=== PATIENT | male | born 1950 | race Caucasian/White ===

== ENCOUNTER 2019-09-22 14:35 | Observation (INO) | payer OTHER ==
[2019-09-22] MEDS ORDERED: NITROGLYCERIN 1 GM PKT TD ONE (15:23)
[2019-09-22] MEDS ORDERED: ACETAMINOPHEN 500 MG TAB ONE (15:23)
[2019-09-22] MEDS ORDERED: PROMETHAZINE INJ 25 MG/ML AMP ONE (15:23)
[2019-09-22 15:31] LABS: Absolute Lymphocytes (CBC) 1.8 K/uL (0.7-4.9); Basophils % 1.1 % (0-1.3); Hematocrit 46.5 % (39.6-49.0); Lymphocytes % 18.8 % (15.3-44.8); RBC Red Blood Cell Count 5.04 M/uL (4.33-5.43)
[2019-09-22 15:32] LABS: Protime INR 0.96
[2019-09-22 15:49] LABS: ALT/SGPT 47 U/L (12-78); AST/SGOT 30 U/L (15-37); Albumin 4.2 g/dL (3.4-5.0); Alkaline Phosphatase 86 U/L (45-117); BUN Blood Urea Nitrogen 13 mg/dL (7-18); Bicarbonate 27 mmol/L (21-32); Bilirubin Direct 0.2 mg/dL (0-0.2); Bilirubin Total 0.6 mg/dL (0.2-1.0); Glucose Level 89 mg/dL (74-106); Magnesium 2.2 mg/dL (1.8-2.4); NT PRO-BNP 115 pg/mL (<125); Protein, Total 7.3 g/dL (6.4-8.2); Sodium Level 140 mmol/L (136-145); Troponin (Emerg Dept Use Only) < 0.02 ng/mL (0.0-0.045)
--- NOTE | 2019-09-22 18:13 | RAD REPORT ---
EXAM DESCRIPTION: CT - Angio Aorta For Dissection - 09/22/2019 5:55 pm CLINICAL HISTORY: . Chest and abd pain COMPARISON: None TECHNIQUE: Computed tomography angiography of the chest, abdomen pelvis were obtained. 100 cc Isovue 370 was administered intravenously. Coronal and sagittal reconstruction were performed. MIP 3D reconstruction was performed All CT scans are performed using dose optimization technique as appropriate and may include automated exposure control or mA/KV adjustment according to patient size. FINDINGS: An aortic dissection is not seen. An aortic aneurysm is not displayed. The celiac, SMA and FATOU are patent . A lung consolidation is not present. A pericardial effusion is not seen. A pleural effusion is not n oted. The liver,spleen, pancreas adrenals kidneys demonstrate no significant abnormality. The appendix is normal. There no evidence diverticulitis. No ascites is noted. A small right inguinal hernia contains fat [id number] atherosclerotic disease IMPRESSION: Negative for an aortic dissection.
--- NOTE | 2019-09-22 18:42 | EDPHYS ---
Physician Documentation [facility] Name: Dominic Stewart Age: 69 yrs Sex: Male : 1950 Arrival Date: 09/22/2019 Time: 14:36 Bed 20 Private MD: ED Physician Myron Adams HPI: 09/22 17:08 This 69 yrs old Male presents to ER via Wheelchair with complaints of Chest kdr Pain, Neck Pain, <24hrs Old. 17:08 The patient or guardian reports chest pain that is located primarily in the substernal kdr area. Onset: gradually, This discomfort has been ongoing for months if not years . It has become more persistent in the last three weeks. He has a history of CAD and a history of normal findings (lab \T\EKG). . The pain radiates to back. Associated signs and symptoms: The patient has no apparent associated signs or symptoms. The chest pain is described as aching, a pressure, sharp, squeezing. Duration: The patient or guardian reports multiple episodes, that are intermittent, that wax and wane, with no pattern. Modifying factors: The symptoms are alleviated by nothing. the symptoms are aggravated by nothing. Severity of pain: At its worst the pain was severe incapacitating in the emergency department the pain has improved mildly, The patient does not appear in any acute distress or significant pain. The patient has experienced similar episodes in the past, chronically. The patient has not recently seen a physician. Historical: - Allergies: 14:50 No Known Allergies; tw2 - Home Meds: 14:50 carvedilol 25 mg oral tab 1 tab 2 times per day [Active]; lisinopril 5 mg Oral tab 1 tw2 tab once daily [Active]; atorvastatin 20 mg oral tab 1 tab once daily [Active]; - PMHx: 14:50 Hypertension; Hyperlipidemia; tw2 - PSHx: 14:50 triple bypass; tw2 - Immunization history:: Adult Immunizations. - Coronavirus screen:: The patient has NOT traveled to [place] in the past 14 days. - Social history:: Smoking status: . - Ebola Screening: : Patient denies travel to an Ebola-affected area in the 21 days before illness onset. ROS: 17:08 Constitutional: Negative for fever, chills, and weight loss, Eyes: Negative for injury, kdr pain, redness, and discharge, ENT: Negative for injury, pain, and discharge, Neck: Negative for injury, pain, and swelling, Respiratory: Negative for shortness of breath, cough, wheezing, and pleuritic chest pain, Abdomen/GI: Negative for abdominal pain, nausea, vomiting, diarrhea, and constipation, Back: Negative for injury and pain, : Negative for injury, bleeding, discharge, and swelling, MS/Extremity: Negative for injury and deformity, Skin: Negative for injury, rash, and discoloration, Neuro: Negative for headache, weakness, numbness, tingling, and seizure activity. Psych: Negative for depression, anxiety, suicide ideation, homicidal ideation, and hallucinations, Allergy/Immunology: Negative for hives, rash, and allergies, Endocrine: Negative for neck swelling, polydipsia, polyuria, polyphagia, and marked weight changes, Hematologic/Lymphatic: Negative for swollen nodes, abnormal bleeding, and unusual bruising. 17:08 Cardiovascular: Positive for chest pain, of the anterior aspect of left upper chest and mid-sternal area, Negative for edema, orthopnea, palpitations, paroxysmal nocturnal dyspnea, acute changes. Exam: 17:08 Constitutional: This is a well developed, well nourished patient who is awake, alert, kdr and in no acute distress. Head/Face: Normocephalic, atraumatic. Eyes: Pupils equal round and reactive to light, extra-ocular motions intact. Lids and lashes normal. Conjunctiva and sclera are non-icteric and not injected. Cornea within normal limits. Periorbital areas with no swelling, redness, or edema. Neck: Trachea midline, no thyromegaly or masses palpated, and no cervical lymphadenopathy. Supple, full range of motion without nuchal rigidity, or vertebral point tenderness. No Meningismus. Chest/axilla: Normal chest wall appearance and motion. Nontender with no deformity. No lesions are appreciated. Cardiovascular: Regular rate and rhythm with a normal S1 and S2. No gallops, murmurs, or rubs. Normal PMI, no JVD. No pulse deficits. Respiratory: Lungs have equal breath sounds bilaterally, clear to auscultation and percussion. No rales, rhonchi or wheezes noted. No increased work of breathing, no retractions or nasal flaring. Abdomen/GI: Soft, non-tender, with normal bowel sounds. No distension or tympany. No guarding or rebound. No evidence of tenderness throughout. Back: No spinal tenderness. No costovertebral tenderness. Full range of motion. Skin: Warm, dry with normal turgor. Normal color with no rashes, no lesions, and no evidence of cellulitis. MS/ Extremity: Pulses equal, no cyanosis. Neurovascular intact. Full, normal range of motion. Neuro: Awake and alert, GCS 15, oriented to person, place, time, and situation. Cranial nerves II-XII grossly intact. Motor strength 5/5 in all extremities. Sensory grossly intact. Cerebellar exam normal. Normal gait. Psych: Awake, alert, with orientation to person, place and time. Behavior, mood, and affect are within normal limits. Vital Signs: 14:47 BP 202 / 105; Pulse 72; Resp 17; Temp 97.8(TE); Pulse Ox 100% on R/A; Weight 79.38 kg tw2 (R); Height 5 ft. 7 in. (170.18 cm); Pain 5/10; 15:05 BP 181 / 107; Pulse 70; Resp 18; Pulse Ox 98% on R/A; Pain 5/10; ls4 15:54 BP 146 / 88; Pulse 84; Resp 16; Temp 97.8; Pulse Ox 97% on R/A; Pain 1/10; ls4 16:50 BP 132 / 79; Pulse 60; Resp 15; Temp 97.8(O); Pulse Ox 100% on R/A; mh5 17:36 BP 123 / 81; Pulse 63; Resp 12; Temp 98.0(O); Pulse Ox 100% on R/A; mh5 18:42 BP 114 / 85; Pulse 63; Resp 19; Temp 98.0(O); Pulse Ox 98% on R/A; mh5 20:13 BP 131 / 89; Pulse 73; Resp 16; Temp 98.1(O); Pulse Ox 99% on R/A; Pain 1/10; ls4 14:47 Body Mass Index 27.41 (79.38 kg, 170.18 cm) tw2 MDM: 17:08 HEART Score: History: Slightly Suspicious (0), ECG: Normal (0), Age: > or = 65 years kdr (2), Risk Factors: 1 or 2 risk factors (1), Troponin: Total Score = 3. Data reviewed: vital signs, nurses notes, lab test result(s), EKG, radiologic studies. 18:41 Patient medically screened. [facility] 09/22 14:45 Order name: Basic Metabolic Panel [facility] 09/22 14:45 Order name: CBC with Diff [facility] 09/22 14:45 Order name: LFT's [facility] 09/22 14:45 Order name: Magnesium [facility] 09/22 14:45 Order name: NT PRO-BNP [facility] 09/22 14:45 Order name: PT-INR [facility] 09/22 14:45 Order name: Troponin (emerg Dept Use Only) [facility] 09/22 15:53 Order name: CBC with Automated Diff; Complete Time: 16:24 EDMI 09/22 15:54 Order name: Protime (+INR); Complete Time: 16:24 EDMI 09/22 15:56 Order name: Basic Metabolic Panel; Complete Time: 16:24 EDMI 09/22 15:56 Order name: Liver (Hepatic) Function; Complete Time: 16:24 EDMI 09/22 15:56 Order name: Troponin (Emerg Dept Use Only); Complete Time: 16:24 EDMS 09/22 15:56 Order name: NT PRO-BNP; Complete Time: 16:24 EDMI 09/22 15:56 Order name: Magnesium; Complete Time: 16:24 EDMI 09/22 14:45 Order name: XRAY Chest (1 view) [facility] 09/22 14:45 Order name: EKG; Complete Time: 18:04 [facility] 09/22 14:45 Order name: Cardiac monitoring; Complete Time: 14:59 [facility] 09/22 14:45 Order name: EKG - Nurse/Tech; Complete Time: 14:59 [facility] 09/22 14:45 Order name: IV Saline Lock; Complete Time: 15:00 [facility] 09/22 14:45 Order name: Labs collected and sent; Complete Time: 15:00 [facility] 09/22 14:45 Order name: O2 Per Protocol; Complete Time: 15:00 [facility] 09/22 14:45 Order name: O2 Sat Monitoring; Complete Time: 15:00 [facility] 09/22 16:23 Order name: CT Aorta for Dissection [facility] 09/22 18:30 Order name: CT; Complete Time: 18:35 EDMI 09/22 18:51 Order name: Chest Single View EDMS Administered Medications: 15:26 Drug: Nitroglycerin Ointment 2 % 1 inches Route: Transdermal; Site: anterior chest wall;ls4 16:09 Follow up: Response: No adverse reaction; Marked relief of symptoms; Pain is decreased; ls4 Blood pressure is lowered 15:26 Drug: Tylenol 1000 mg Route: PO; ls4 16:09 Follow up: Response: No adverse reaction; Pain is decreased ls4 15:27 Not Given (Patient Refused): Phenergan 12.5 mg IVP once ls4 19:49 Not Given (Patient Refused): Nitroglycerin 0.4 mg Sublingual once; every five minute if ls4 needed x3 Disposition: 09/22/19 18:41 Hospitalization ordered by Luz Armstrong for Observation. Preliminary diagnosis is Chest pain, unspecified. - Bed requested for Telemetry/MedSurg (observation). - Status is Observation. ls4 - Condition is Fair. - Problem is an acute exacerbation. - Symptoms have improved. Signatures: Dispatcher [employer] EDMS Myron Adams MD MD [facility] Julia Layne RN RN tl1 Kelly Ortiz RN RN tw2 Elo Bhat, AIDE RN ls4 Corrections: (The following items were deleted from the chart) 19:19 18:41 Hospitalization Ordered by Luz Armstrong MD for Observation. Preliminary tl1 diagnosis is Chest pain, unspecified. Bed requested for Telemetry/MedSurg (observation). Status is Observation. Condition is Fair. Problem is an acute exacerbation. Symptoms have improved. kdr 20:55 19:19 09/22/2019 18:41 Hospitalization Ordered by Luz Armstrong MD for Observation. ls4 Preliminary diagnosis is Chest pain, unspecified. Bed requested for Telemetry/MedSurg (observation). Status is Observation. Condition is Fair. Problem is an acute exacerbation. Symptoms have improved. tl1
--- NOTE | 2019-09-22 18:42 | ER ---
Nurse's Notes [facility] Name: Dominic Stewart Age: 69 yrs Sex: Male : 1950 Arrival Date: 09/22/2019 Time: 14:36 Bed 20 Private MD: Diagnosis: Chest pain, unspecified Presentation: 09/22 14:46 Presenting complaint: Patient states: i have been having chest pain that started about tw2 3 weeks ago, they come and go, sometimes it feels like a tightness and radiates to my back, i have had a triple bypass 10 years ago, but i do feel this tightness and pressure like on both sides of my neck. Transition of care: patient was not received from another setting of care. Onset of symptoms was September 22, 2019. Risk Assessment: Do you want to hurt yourself or someone else? Patient reports no desire to harm self or others. Initial Sepsis Screen: Does the patient meet any 2 criteria? No. Patient's initial sepsis screen is negative. Does the patient have a suspected source of infection? No. Patient's initial sepsis screen is negative. Care prior to arrival: None. 14:46 Method Of Arrival: Wheelchair tw2 14:46 Acuity: LOIS 2 tw2 14:48 Note provider notified of pts triage and hx. tw2 Triage Assessment: 14:46 General: Appears in no apparent distress. well groomed, Behavior is calm, cooperative, tw2 appropriate for age. Pain: Complains of pain in chest. Cardiovascular: Reports chest pain, and pressure on both sides of my neck. Historical: - Allergies: 14:50 No Known Allergies; tw2 - Home Meds: 14:50 carvedilol 25 mg oral tab 1 tab 2 times per day [Active]; lisinopril 5 mg Oral tab 1 tw2 tab once daily [Active]; atorvastatin 20 mg oral tab 1 tab once daily [Active]; - PMHx: 14:50 Hypertension; Hyperlipidemia; tw2 - PSHx: 14:50 triple bypass; tw2 - Immunization history:: Adult Immunizations. - Coronavirus screen:: The patient has NOT traveled to [place] in the past 14 days. - Social history:: Smoking status: . - Ebola Screening: : Patient denies travel to an Ebola-affected area in the 21 days before illness onset. Screenin:06 Abuse screen: Denies threats or abuse. Denies injuries from another. Nutritional ls4 screening: No deficits noted. Tuberculosis screening: No symptoms or risk factors identified. Fall Risk None identified. Assessment: 15:27 Pain: Pain radiates to neck Pain began gradually. Neuro: No deficits noted. ls4 Cardiovascular: Reports chest pain, since 3 weeks. Respiratory: No deficits noted. GI: No deficits noted. Derm: No deficits noted. 16:30 Reassessment: Patient appears in no apparent distress at this time. Patient and/or ls4 family updated on plan of care and expected duration. Pain level reassessed. Patient is alert, oriented x 3, equal unlabored respirations, skin warm/dry/pink. Patient states symptoms have improved. 17:30 Reassessment: Patient appears in no apparent distress at this time. Patient and/or ls4 family updated on plan of care and expected duration. Pain level reassessed. Patient is alert, oriented x 3, equal unlabored respirations, skin warm/dry/pink. 18:30 Reassessment: Patient appears in no apparent distress at this time. Patient and/or ls4 family updated on plan of care and expected duration. Pain level reassessed. Patient is alert, oriented x 3, equal unlabored respirations, skin warm/dry/pink. 19:30 Reassessment: Patient appears in no apparent distress at this time. Patient and/or ls4 family updated on plan of care and expected duration. Pain level reassessed. Patient is alert, oriented x 3, equal unlabored respirations, skin warm/dry/pink. 20:02 Reassessment: REPORT TO JAZMIN CHEATHAM ls4 Vital Signs: 14:47 BP 202 / 105; Pulse 72; Resp 17; Temp 97.8(TE); Pulse Ox 100% on R/A; Weight 79.38 kg tw2 (R); Height 5 ft. 7 in. (170.18 cm); Pain 5/10; 15:05 BP 181 / 107; Pulse 70; Resp 18; Pulse Ox 98% on R/A; Pain 5/10; ls4 15:54 BP 146 / 88; Pulse 84; Resp 16; Temp 97.8; Pulse Ox 97% on R/A; Pain 1/10; ls4 16:50 BP 132 / 79; Pulse 60; Resp 15; Temp 97.8(O); Pulse Ox 100% on R/A; mh5 17:36 BP 123 / 81; Pulse 63; Resp 12; Temp 98.0(O); Pulse Ox 100% on R/A; mh5 18:42 BP 114 / 85; Pulse 63; Resp 19; Temp 98.0(O); Pulse Ox 98% on R/A; mh5 20:13 BP 131 / 89; Pulse 73; Resp 16; Temp 98.1(O); Pulse Ox 99% on R/A; Pain 1/10; ls4 14:47 Body Mass Index 27.41 (79.38 kg, 170.18 cm) tw2 ED Course: 14:36 Patient arrived in ED. as 14:44 EKG completed in triage. Results shown to MD. tw2 14:45 Myron Adams MD is Attending Physician. kdr 14:46 Arm band placed on. tw2 14:47 Triage completed. tw2 14:53 Elo Bhat RN is Primary Nurse. ls4 15:06 Patient has correct armband on for positive identification. Bed in low position. Call ls4 light in reach. Side rails up X 1. stereotyper helper on. Pulse ox on. NIBP on. Warm blanket given. Verbal reassurance given. Diet: Patient is NPO. 15:06 No provider procedures requiring assistance completed. Patient maintains SpO2 ls4 saturation greater than 95% on room air. 18:41 Luz Armstrong MD is Hospitalizing Provider. kdr 20:51 Patient admitted, IV remains in place. intact. ls4 Administered Medications: 15:26 Drug: Nitroglycerin Ointment 2 % 1 inches Route: Transdermal; Site: anterior chest wall;ls4 16:09 Follow up: Response: No adverse reaction; Marked relief of symptoms; Pain is decreased; ls4 Blood pressure is lowered 15:26 Drug: Tylenol 1000 mg Route: PO; ls4 16:09 Follow up: Response: No adverse reaction; Pain is decreased ls4 15:27 Not Given (Patient Refused): Phenergan 12.5 mg IVP once ls4 19:49 Not Given (Patient Refused): Nitroglycerin 0.4 mg Sublingual once; every five minute if ls4 needed x3 Outcome: 18:41 Decision to Hospitalize by Provider. kdr 20:51 Admitted to Tele accompanied by tech, via wheelchair, room 215, Report called to JAZMIN ls4 20:51 Condition: stable 20:51 Instructed on the need for admit. 20:55 Patient left the ED. ls4 Signatures: Myron Adams MD MD kdr Martinez, Amelia as Wise, Tara, RN RN tw2 [facility] Elo Bhat RN RN ls4 Corrections: (The following items were deleted from the chart) 14:53 14:47 Pulse 72bpm; Resp 17bpm; Pulse Ox 100% RA; Temp 97.8F Temporal; 79.38 kg tw2 Reported; Height 5 ft. 7 in.; BMI: 27.4; Pain 5/10; tw2
--- NOTE | 2019-09-22 18:47 | RAD REPORT ---
EXAM DESCRIPTION: Bel Single View09/22/2019 6:40 pm CLINICAL HISTORY: Chest pain COMPARISON: None FINDINGS: The lungs appear clear of acute infiltrate. The heart is mildly enlarged. Postsurgical changes involve the chest. IMPRESSION: No acute abnormalities displayed
[2019-09-22] MEDS ORDERED: ACETAMINOPHEN 500 MG TAB PO PRN (20:40)
[2019-09-22] MEDS ORDERED: NITROGLYCERIN 0.4 MG/TAB SL PRN (20:40)
[2019-09-22 21:44] LABS: HDL Cholesterol 58 mg/dL (40-60); LDL Cholesterol, Calculated 108 (<130); Troponin I < 0.02 ng/mL (0.0-0.045)
[2019-09-22 22:04] VITALS: BMI 27.3
[2019-09-22] MEDS: ATORVASTATIN 20 MG TAB PO SCH (22:32)
[2019-09-22] MEDS: METOPROLOL TAR 50 MG TAB PO SCH (22:32)
[2019-09-23] MEDS: TEMAZEPAM 15 MG CAP PO PRN ×2 (01:23→21:46)
[2019-09-23 05:39] LABS: Absolute Lymphocytes (CBC) 2.1 K/uL (0.7-4.9); Basophils % 0.9 % (0-1.3); Hematocrit 42.6 % (39.6-49.0); Lymphocytes % 23.7 % (15.3-44.8); MPV 9.9 fL (7.6-11.3); RBC Red Blood Cell Count 4.63 M/uL (4.33-5.43)
[2019-09-23 05:58] LABS: Potassium 4.1 mmol/L (3.5-5.1)
[2019-09-23] MEDS ORDERED: REGADENOSON 0.4 MG/5 ML SYR IV ONE (08:37)
--- NOTE | 2019-09-23 08:47 | P.HP ---
Certification for Inpatient Patient admitted to: Observation With expected LOS: <2 Midnights Patient will require the following post-hospital care: None Practitioner: I am a practitioner with admitting privileges, knowledge of patient current condition, hospital course, and medical plan of care. Services: Services provided to patient in accordance with Admission requirements found in Title 42 Section 412.3 of the Code of Federal Regulations Patient History Date of Service: 09/22/19 Reason for admission: CHEST PAIN IN A PATIENT WITH A HISTORY OF CORONARY ARTERY DISEASE S/P CABG History of Present Illness: PATIENT IS A 69-YEAR-OLD GENTLEMAN WHO CAME TO THE HOSPITAL WITH CHEST DISCOMFORT. PATIENT HAS BEEN HAVING SOME CHEST PAIN ON AND OFF FOR THE LAST 3 WEEKS IT GOT SIGNIFICANTLY WORSE SO HE CAME INTO THE EMERGENCY ROOM. HE WAS WORKING IN [employer] WHEN THE CHEST PAIN STARTED AND HE DROVE BACK HOME TO COME TO THE EMERGENCY ROOM HERE. HE HAS HAD HISTORY OF CORONARY ARTERY BYPASS GRAFTING AND HAD A CARDIAC CATHETERIZATION A FEW YEARS AGO. IT IS SUGGESTED THAT HE MAY HAVE A 30% LESION AND THE BYPASSED ARTERY. HE ALSO HAS A HISTORY OF CAROTID ARTERY ATHEROSCLEROTIC DISEASE. AT THIS TIME PATIENT WILL BE ADMITTED FOR FURTHER EVALUATION. IT APPEARS HE MAY HAVE UNSTABLE ANGINA. HE MAY NEED FURTHER EVALUATION WITH AN ANGIOGRAM. STRESS TEST HAS BEEN ORDERED FOR THE MORNING AND WILL AWAIT THE RESULTS OF THIS AT THIS TIME. Allergies No Known Allergies Allergy (Unverified 09/22/19 17:23) Home Medications: Atorvastatin Calcium [Lipitor*] 1 tab PO BEDTIME 09/22/19 carvediloL [Carvedilol] 1 tab PO BID 09/22/19 lisinopriL [Lisinopril] 1 tab PO BEDTIME 09/22/19 Atorvastatin Calcium [Lipitor] 80 mg PO BEDTIME 60 Days #60 tab 09/24/19 Isosorbide Mononitrate [Isosorbide Mononitrate ER] 30 mg PO DAILY 60 Days #60 tab.er.24h 09/24/19 - Past Medical/Surgical History Has patient received pneumonia vaccine in the past: Yes Diabetic: No -: HTN -: Hyperlipedimia -: Triple bypass - Family History Father Medical History: Heart disease Notes: Quad bypass - Social History Smoking Status: Former smoker Alcohol use: No CD- Drugs: No Caffeine use: Yes Place of Residence: Home Review of Systems 10-point ROS is otherwise unremarkable Physical Examination - Vital Signs Temperature: 97.6 F Blood Pressure: 128/77 Pulse: 61 Respirations: 16 Pulse Ox (%): 96 - Physical Exam General: Alert, In no apparent distress, Oriented x3 HEENT: Atraumatic, PERRLA, Mucous membr. moist/pink, EOMI, Sclerae nonicteric Neck: Supple, 2+ carotid pulse no bruit, No LAD, Without JVD or thyroid abnormality Respiratory: Clear to auscultation bilaterally, Normal air movement Cardiovascular: Regular rate/rhythm, Normal S1 S2, No murmurs Gastrointestinal: Normal bowel sounds, Soft and benign, Non-distended, No tenderness Musculoskeletal: No clubbing, No swelling, No tenderness Integumentary: No rashes Neurological: Normal gait, Normal speech, Normal strength at 5/5 x4 extr, Normal tone, Sensation intact, Cranial nerves 3-12 intact, Normal affect Lymphatics: No axilla or inguinal lymphadenopathy - Studies Laboratory Data (last 24 hrs) 09/22/19 15:13: PT 11.4, INR 0.96 09/22/19 15:13: WBC 9.7, Hgb 15.7, Hct 46.5, Plt Count 306 09/22/19 15:13: Sodium 140, Potassium 4.0, BUN 13, Creatinine 1.17, Glucose 89, Magnesium 2.2, Total Bilirubin 0.6, AST 30, ALT 47, Alkaline Phosphatase 86 09/22/19 14:45: PT Cancelled, INR Cancelled 09/22/19 14:45: WBC Cancelled, Hgb Cancelled, Hct Cancelled, Plt Count Cancelled 09/22/19 14:45: Sodium Cancelled, Potassium Cancelled, BUN Cancelled, Creatinine Cancelled, Glucose Cancelled, Magnesium Cancelled, Total Bilirubin Cancelled, AST Cancelled, ALT Cancelled, Alkaline Phosphatase Cancelled Assessment & Plan - Problems (Diagnosis) (1) CAD (coronary artery disease) Status: Acute (2) Hypertension Status: Acute (3) Status post coronary artery bypass graft Status: Acute (4) Unstable angina Status: Acute - Plan 1. Serial troponins and EKG 2. Appreciate Cardiology consultation 3. Echocardiogram and cardiac catheterization in the morning 4. Anti-platelet therapy, anti coagulation, beta-felisa, statin, and O2 as needed 5. IV morphine for pain 6. Nitro p.r.n. Discharge Plan: Home Plan to discharge in: [facility] than 2 days - Advance Directives Does patient have a Living Will: No Does patient have a Durable POA for Healthcare: No - Code Status/Comfort Care Code Status Assessed: Yes Code Status: Full Code Critical Care: No Time Spent Managing PTS Care (In Minutes): 45
[2019-09-23] MEDS: ASPIRIN EC 81 MG TAB PO SCH (09:47)
[2019-09-23] MEDS: METOPROLOL TAR 50 MG TAB PO SCH ×2 (09:48→20:24)
[2019-09-23] MEDS: lisinopriL 5 MG TAB PO SCH (09:49)
--- NOTE | 2019-09-23 10:10 | EKG ---
Test Date: 2019-09-22 Test Time: 14:42:18 Occupational Therapy Assistant: HERMINIO MEASUREMENT RESULTS: Intervals: Rate: 65 WY: 182 QRSD: 86 QT: 396 QTc: 411 [place]: P: 74 W[place]: 182 QRS: 40 T: 64 INTERPRETIVE STATEMENTS: Normal sinus rhythm Normal ECG No previous ECG available for comparison Electronically Signed On 09-23-19 10:08:54 AGRICULTURAL ENGINEER by Jose Maria Kessler
--- NOTE | 2019-09-23 10:23 | RAD REPORT ---
EXAM DESCRIPTION: NM - Rest Stress Cardiac Imaging - 09/23/2019 9:52 am CLINICAL HISTORY: Chest pain. COMPARISON: None. TECHNIQUE: The patient was administered approximately 10mCi of Tc 99m Sestamibi prior to resting SPE CT imaging of the heart. The patient was then administered approximately 30 mCi of Tc 99m Sestamibi f ollowing exercise or pharmacologic stress. Multiplanar SPECT images were reviewed. FINDINGS: A small area of diminished radiotracer uptake involves the lateral left ventricular myoca rdium on stress images. This demonstrates partial reaccumulation on rest images. The left ventricular ejection fraction equals 62% IMPRESSION: Small, partially reversible perfusion defect involving the lateral left ventricular dereje cardium may indicate stress-induced ischemia
[2019-09-23] MEDS: ENOXAPARIN 40 MG/0.4 ML SQ SCH (11:17)
--- NOTE | 2019-09-23 11:21 | P.PN ---
Subjective Date of Service: 09/23/19 Chief Complaint: CHEST PAIN IN A PATIENT WITH A HISTORY OF CORONARY ARTERY DISEASE S/P CABG Subjective: No new changes Review of Systems 10-point ROS is otherwise unremarkable Physical Examination - Vital Signs Temperature: 97.6 F Blood Pressure: 128/77 Pulse: 61 Respirations: 16 Pulse Ox (%): 96 - Physical Exam General: Alert, In no apparent distress HEENT: Atraumatic, Normocephalic Neck: Supple Respiratory: Clear to auscultation bilaterally, Normal air movement Cardiovascular: No edema, Regular rate/rhythm Capillary refill: <2 Seconds Gastrointestinal: Normal bowel sounds, Soft and benign Musculoskeletal: No clubbing, No swelling Integumentary: No rashes Neurological: Normal speech, Normal strength at 5/5 x4 extr Lymphatics: No axilla or inguinal lymphadenopathy External genitalia: Deferred Rectal: Deferred - Studies Laboratory Data (last 24 hrs) 09/22/19 15:13: PT 11.4, INR 0.96 09/22/19 15:13: WBC 9.7, Hgb 15.7, Hct 46.5, Plt Count 306 09/22/19 15:13: Sodium 140, Potassium 4.0, BUN 13, Creatinine 1.17, Glucose 89, Magnesium 2.2, Total Bilirubin 0.6, AST 30, ALT 47, Alkaline Phosphatase 86 09/22/19 14:45: PT Cancelled, INR Cancelled 09/22/19 14:45: WBC Cancelled, Hgb Cancelled, Hct Cancelled, Plt Count Cancelled 09/22/19 14:45: Sodium Cancelled, Potassium Cancelled, BUN Cancelled, Creatinine Cancelled, Glucose Cancelled, Magnesium Cancelled, Total Bilirubin Cancelled, AST Cancelled, ALT Cancelled, Alkaline Phosphatase Cancelled Laboratory Last Values WBC 8.9 K/uL (4.3-10.9) 09/23/19 05:09 RBC 4.63 M/uL (4.33-5.43) 09/23/19 05:09 Hgb 14.3 g/dL (13.6-17.9) 09/23/19 05:09 Hct 42.6 % (39.6-49.0) 09/23/19 05:09 MCV 92.1 fL (80-100) 09/23/19 05:09 MCH 30.9 pg (27.0-35.0) 09/23/19 05:09 MCHC 33.5 g/dL (32.0-36.0) 09/23/19 05:09 RDW 13.6 % (12.1-15.2) 09/23/19 05:09 Plt Count 262 K/uL (152-406) 09/23/19 05:09 MPV 9.9 fL (7.6-11.3) 09/23/19 05:09 Neutrophils % 61.9 % (41.7-73.7) 09/23/19 05:09 Lymphocytes % 23.7 % (15.3-44.8) 09/23/19 05:09 Monocytes % 9.4 % (3.3-12.3) 09/23/19 05:09 Eosinophils % 4.1 % (0-4.4) 09/23/19 05:09 Basophils % 0.9 % (0-1.3) 09/23/19 05:09 Absolute Neutrophils 5.5 K/uL (1.8-8.0) 09/23/19 05:09 Absolute Lymphocytes 2.1 K/uL (0.7-4.9) 09/23/19 05:09 Absolute Monocytes 0.8 K/uL (0.1-1.3) 09/23/19 05:09 Absolute Eosinophils 0.4 K/uL (0-0.5) 09/23/19 05:09 Absolute Basophils 0.1 K/uL (0-0.5) 09/23/19 05:09 Diff Path Review Cancelled 09/22/19 14:45 PT 11.4 SECONDS (9.5-12.5) 09/22/19 15:13 INR 0.96 09/22/19 15:13 Sodium 140 mmol/L (136-145) 09/23/19 05:09 Potassium 4.1 mmol/L (3.5-5.1) 09/23/19 05:09 Chloride 109 mmol/L (98-107) H 09/23/19 05:09 Carbon Dioxide 26 mmol/L (21-32) 09/23/19 05:09 BUN 14 mg/dL (7-18) 09/23/19 05:09 Creatinine 1.04 mg/dL (0.55-1.3) 09/23/19 05:09 Estimated GFR 71 mL/min (=/>90) L 09/23/19 05:09 Glucose 99 mg/dL (74-106) 09/23/19 05:09 Calcium 8.7 mg/dL (8.5-10.1) 09/23/19 05:09 Magnesium 2.2 mg/dL (1.8-2.4) 09/22/19 15:13 Total Bilirubin 0.6 mg/dL (0.2-1.0) 09/22/19 15:13 Direct Bilirubin 0.2 mg/dL (0-0.2) 09/22/19 15:13 AST 30 U/L (15-37) 09/22/19 15:13 ALT 47 U/L (12-78) 09/22/19 15:13 Alkaline Phosphatase 86 U/L (45-117) 09/22/19 15:13 Rapid Troponin I < 0.02 ng/mL (0.0-0.045) 09/22/19 15:13 Troponin I < 0.02 ng/mL (0.0-0.045) 09/23/19 00:42 NT-Pro-B Natriuret Pep 115 pg/mL (<125) 09/22/19 15:13 Serum Total Protein 7.3 g/dL (6.4-8.2) 09/22/19 15:13 Albumin 4.2 g/dL (3.4-5.0) 09/22/19 15:13 Globulin 3.1 g/dL (2.3-3.5) 09/22/19 15:13 Albumin/Globulin Ratio 1.4 (1.1-1.8) 09/22/19 15:13 Triglycerides 205 mg/dL (<150) H 09/22/19 21:11 Cholesterol 207 mg/dL (<200) H 09/22/19 21:11 LDL Cholesterol, Calc 108 (<130) 09/22/19 21:11 HDL Cholesterol 58 mg/dL (40-60) 09/22/19 21:11 Cholesterol/HDL Ratio 3.57 09/22/19 21:11 Assessment & Plan - Problems (Diagnosis) (1) Unstable angina Current Visit: Yes Status: Acute (2) CAD (coronary artery disease) Current Visit: Yes Status: Acute (3) Status post coronary artery bypass graft Current Visit: Yes Status: Acute (4) Hypertension Current Visit: Yes Status: Acute Plan: monitor on the telemetry trend cardiac enzymes Echocardiogram Stress test will get a cardiology consult the patient has multiple risk factors including CAD status post CABG Awaiting further recommendations from cardiology Discussed with the patient and family Time Spent Managing Pts Care (In Minutes): 40
--- NOTE | 2019-09-23 13:49 | TREADPHA ---
DX: CHEST PAIN Date of Study: 09/23/2019 Ht: 5 7 Wt: 175 lb 0.047 oz Consulting Physician: GERALD MEDICATIONS: TYLENOL, ASPIRIN, LIPITOR, LOVENOX, LOPRESSOR, PRINIVIL, NITROSTAT HISTORY: 69 YEAR OLD MALE WITH HISTORY HYPERTENSION, HYPERLIPIDEMIA, NON SMOKER, OCCASIONAL DRINKER. PHYSICIAL EXAMINATION: RESTING B.P.: 155/79 RESTING H.R.: 60 RESTING EKG: NORMAL PROTOCOL: LEXISCAN EXERCISE TIME: 3:30 B.P. AT PEAK STRESS: 128/80 IMPRESSION: LEXISCAN INJECTED, FOLLOWED BY CARDIOLITE PER PROTOCOL. SEE NUCLEAR MEDICINE REPORT. NO SUPRAVENTRICULAR TACHYCARDIA, VENTRICULAR TACHYCARDIA, PREMATURE ATRIAL COMPLEXES OR PREMATURE VENTRICULAR TACHYCARDIA. PATIENT REPORTS NO CHEST PAIN.
--- NOTE | 2019-09-23 14:16 | CON ---
Admitted to Dr. Jaimes on 09/22/2019 for chest pain. History Of Present Illness: Mr. Stewart is 69, history of hypertension, dyslipidemia. He came in wi th atypical chest pain. No nausea, vomiting, diaphoresis, PND, orthopnea, pedal edema, palpitations, or syncope. All his labs were negative. CTA is negative. Chest x-ray is negative. Troponin is ne gative. Echocardiogram and stress test were pending. Past Medical History: As stated earlier. Allergies: NONE. Review of Systems: Negative. Social History: Negative. Family History: Noncontributory. Medications: At home include Lipitor, Coreg, and lisinopril. Physical Examination: Vital Signs: Stable, afebrile. HEENT: Negative. Neck: Supple with no bruit. Chest: Clear to auscultation and percussion. Cardiac: Reveals a regular rhythm and rate. No murmurs, gallops, or rubs. Abdomen: Benign. Extremities: Revealed no clubbing, cyanosis, or edema. Diagnostic Data: As stated earlier. Impression And Plan: Atypical chest pain in a patient with multiple risk factors including age, gend er, hypertension, and dyslipidemia. Echocardiogram and stress test are pending. We will see what that shows prior to making any final de cisions. LUIS/CHRISTOPHER Voice ID: [id number] Report ID: [id number]
--- NOTE | 2019-09-23 16:56 | RAD REPORT ---
EXAM DESCRIPTION: - CP - 09/23/2019 4:16 pm CLINICAL HISTORY: CAROTID ARTERY STENOSIS COMPARISON: No comparisons TECHNIQUE: Real-time sonographic evaluation of both carotid systems was performed. Doppler interroga tion was performed with waveform tracing bilaterally. FINDINGS: Normal high resistance waveforms are noted in both external carotid arteries. The common c arotid arteries and internal carotid arteries show normal low resistance waveforms. Moderate hard plaque is seen in both carotid bulbs. The left carotid bulb poststenotic turbulent flow is seen with mildly elevated velocity of 175 cm/second. Estimated stenosis based on NASCET criteria is 50-70%. A hemodynamically significant right-sided stenosis seen. Antegrade flow seen in both vertebral arteries. IMPRESSION: Moderate hard plaque is seen in both carotid bulbs. Left carotid bulb stenosis is mild, estimated at 50-70% based on NASCET criteria.
[2019-09-23] MEDS: ATORVASTATIN 20 MG TAB PO SCH (20:23)
[2019-09-24 06:11] LABS: Absolute Lymphocytes (CBC) 1.6 K/uL (0.7-4.9); Basophils % 0.6 % (0-1.3); Hematocrit 43.9 % (39.6-49.0); Lymphocytes % 19.9 % (15.3-44.8); MPV 9.4 fL (7.6-11.3); RBC Red Blood Cell Count 4.75 M/uL (4.33-5.43)
[2019-09-24 06:23] LABS: Potassium 4.3 mmol/L (3.5-5.1)
[2019-09-24] MEDS: METOPROLOL TAR 50 MG TAB PO SCH (08:14)
[2019-09-24] MEDS: ASPIRIN EC 81 MG TAB PO SCH (08:14)
[2019-09-24] MEDS: lisinopriL 5 MG TAB PO SCH (08:15)
[2019-09-24] MEDS: ENOXAPARIN 40 MG/0.4 ML SQ SCH (08:16)
--- NOTE | 2019-09-24 08:43 | ECHO ---
HEIGHT: 5 ft 7 in WEIGHT: 175 lb 0.047 oz DATE OF STUDY: 09/23/[address]: Luz Armstrong MD 2-DIMENSIONAL: YES M.MODE: YES DOPPLER: YES COLOR FLOW: YES TDS: NO PORTABLE: NO DEFINITY: NO BUBBLE STUDY: NO DIAGNOSIS: CHEST PAIN CARDIAC HISTORY: CATHERIZATION: YES SURGERY: NO PROSTHETIC VALVE: NO PACEMAKER: NO MEASUREMENTS (cm) DIASTOLIC (NORMALS) SYSTOLIC (NORMALS) IVSd 1.0 (0.6-1.2) LA Diam 3.5 (1.9-4.0) LVEF 62% LVIDd 4.2 (3.5-5.7) LVIDs 2.8 (2.0-3.5) %FS 33% LVPWd 1.2 (0.6-1.2) Ao Diam 2.9 (2.0-3.7) 2 DIMENSIONAL ASSESSMENT: RIGHT ATRIUM: NORMAL LEFT ATRIUM: NORMAL RIGHT VENTRICLE: NORMAL LEFT VENTRICLE: NORMAL TRICUSPID VALVE: NORMAL MITRAL VALVE: NORMAL PULMONIC VALVE: NORMAL AORTIC VALVE: NORMAL PERICARDIAL EFFUSION: NONE AORTIC ROOT: NORMAL LEFT VENTRICULAR WALL MOTION: NORMAL DOPPLER/COLOR FLOW: NORMAL COMMENTS: NORMAL 2D ECHOCARDIOGRAM WITH DOPPLER. NO WALL MOTION ABNORMALITY. NO EFFUSION. TECHNOLOGIST: Severiano JACOBO
--- NOTE | 2019-09-24 09:41 | P.PN ---
Subjective Date of Service: 09/24/19 Chief Complaint: CHEST PAIN IN A PATIENT WITH A HISTORY OF CORONARY ARTERY DISEASE S/P CABG Subjective: No new changes Review of Systems 10-point ROS is otherwise unremarkable Physical Examination - Vital Signs Temperature: 97.7 F Blood Pressure: 130/69 Pulse: 62 Respirations: 16 Pulse Ox (%): 98 - Physical Exam General: Alert, In no apparent distress, Oriented x3 HEENT: Atraumatic, Normocephalic Neck: Supple Respiratory: Clear to auscultation bilaterally Cardiovascular: No edema, Regular rate/rhythm Capillary refill: <2 Seconds Gastrointestinal: Soft and benign, W/out hepatosplenomegaly Musculoskeletal: No clubbing, No swelling Integumentary: No rashes Neurological: Normal speech, Normal strength at 5/5 x4 extr Lymphatics: No axilla or inguinal lymphadenopathy External genitalia: Deferred Rectal: Deferred - Studies Laboratory Last Values WBC 8.0 K/uL (4.3-10.9) 09/24/19 05:54 RBC 4.75 M/uL (4.33-5.43) 09/24/19 05:54 Hgb 14.9 g/dL (13.6-17.9) 09/24/19 05:54 Hct 43.9 % (39.6-49.0) 09/24/19 05:54 MCV 92.5 fL (80-100) 09/24/19 05:54 MCH 31.3 pg (27.0-35.0) 09/24/19 05:54 MCHC 33.9 g/dL (32.0-36.0) 09/24/19 05:54 RDW 13.7 % (12.1-15.2) 09/24/19 05:54 Plt Count 254 K/uL (152-406) 09/24/19 05:54 MPV 9.4 fL (7.6-11.3) 09/24/19 05:54 Neutrophils % 66.7 % (41.7-73.7) 09/24/19 05:54 Lymphocytes % 19.9 % (15.3-44.8) 09/24/19 05:54 Monocytes % 8.4 % (3.3-12.3) 09/24/19 05:54 Eosinophils % 4.4 % (0-4.4) 09/24/19 05:54 Basophils % 0.6 % (0-1.3) 09/24/19 05:54 Absolute Neutrophils 5.3 K/uL (1.8-8.0) 09/24/19 05:54 Absolute Lymphocytes 1.6 K/uL (0.7-4.9) 09/24/19 05:54 Absolute Monocytes 0.7 K/uL (0.1-1.3) 09/24/19 05:54 Absolute Eosinophils 0.3 K/uL (0-0.5) 09/24/19 05:54 Absolute Basophils 0.0 K/uL (0-0.5) 09/24/19 05:54 Diff Path Review Cancelled 09/22/19 14:45 PT 11.4 SECONDS (9.5-12.5) 09/22/19 15:13 INR 0.96 09/22/19 15:13 Sodium 140 mmol/L (136-145) 09/24/19 05:54 Potassium 4.3 mmol/L (3.5-5.1) 09/24/19 05:54 Chloride 108 mmol/L (98-107) H 09/24/19 05:54 Carbon Dioxide 27 mmol/L (21-32) 09/24/19 05:54 BUN 14 mg/dL (7-18) 09/24/19 05:54 Creatinine 0.98 mg/dL (0.55-1.3) 09/24/19 05:54 Estimated GFR 76 mL/min (=/>90) L 09/24/19 05:54 Glucose 104 mg/dL (74-106) 09/24/19 05:54 Calcium 8.9 mg/dL (8.5-10.1) 09/24/19 05:54 Magnesium 2.2 mg/dL (1.8-2.4) 09/22/19 15:13 Total Bilirubin 0.6 mg/dL (0.2-1.0) 09/22/19 15:13 Direct Bilirubin 0.2 mg/dL (0-0.2) 09/22/19 15:13 AST 30 U/L (15-37) 09/22/19 15:13 ALT 47 U/L (12-78) 09/22/19 15:13 Alkaline Phosphatase 86 U/L (45-117) 09/22/19 15:13 Rapid Troponin I < 0.02 ng/mL (0.0-0.045) 09/22/19 15:13 Troponin I < 0.02 ng/mL (0.0-0.045) 09/23/19 00:42 NT-Pro-B Natriuret Pep 115 pg/mL (<125) 09/22/19 15:13 Serum Total Protein 7.3 g/dL (6.4-8.2) 09/22/19 15:13 Albumin 4.2 g/dL (3.4-5.0) 09/22/19 15:13 Globulin 3.1 g/dL (2.3-3.5) 09/22/19 15:13 Albumin/Globulin Ratio 1.4 (1.1-1.8) 09/22/19 15:13 Triglycerides 205 mg/dL (<150) H 09/22/19 21:11 Cholesterol 207 mg/dL (<200) H 09/22/19 21:11 LDL Cholesterol, Calc 108 (<130) 09/22/19 21:11 HDL Cholesterol 58 mg/dL (40-60) 09/22/19 21:11 Cholesterol/HDL Ratio 3.57 09/22/19 21:11 Assessment & Plan - Problems (Diagnosis) (1) Unstable angina Current Visit: Yes Status: Acute (2) CAD (coronary artery disease) Current Visit: Yes Status: Acute (3) Status post coronary artery bypass graft Current Visit: Yes Status: Acute (4) Hypertension Current Visit: Yes Status: Acute Plan: monitored on the telemetry trend cardiac enzymes Echocardiogram Stress test Appreciate cardiology consult patient has multiple risk factors including CAD status post CABG Awaiting left heart catheterization by cardio Discussed with the patient and family Continued home medications and titrate as needed Discharge Plan: Home Plan to discharge in: 24 Hours Time Spent Managing Pts Care (In Minutes): 42
[2019-09-24] MEDS: MORPHINE 4 MG/ML SYR IV PRN ×2 (10:24→13:57)
[2019-09-24] MEDS ORDERED: LIDOCAINE 1% MPF 30 ML VIAL ONE (11:00)
[2019-09-24] MEDS ORDERED: HEPA 1000U/500MLS 2,000 UNIT/1,000 ML BAG IV ONE (11:00)
[2019-09-24] MEDS ORDERED: MIDAZOLAM HCL 2 MG/2 ML INJ ONE ×2 (11:25→11:34)
[2019-09-24] MEDS ORDERED: NA CHLORIDE 0.9% 500 ML ONE (11:25)
[2019-09-24] MEDS ORDERED: ATROPINE SULF 1 MG/10 ML SYR IV ONE (11:25)
[2019-09-24] MEDS ORDERED: NA CHLORIDE 0.9% 0 ML ONE (11:25)
[2019-09-24] MEDS ORDERED: FENTANYL CITR 100 MCG/2 ML ONE (11:25)
[2019-09-24 15:50] VITALS: O2SAT 98
--- NOTE | 2019-09-24 16:39 | P.DS ---
Admission Date: 09/22/19 Discharge Date: 09/24/19 Disposition: ROUTINE DISCHARGE Discharge Condition: GOOD Reason for Admission: CHEST PAIN IN A PATIENT WITH A HISTORY OF CORONARY ARTERY DISEASE S/P CABG - Problems (1) Unstable angina Status: Acute (2) CAD (coronary artery disease) Status: Acute (3) Status post coronary artery bypass graft Status: Acute (4) Hypertension Status: Acute Brief History of Present Illness: 69-YEAR-OLD GENTLEMAN WHO CAME TO THE HOSPITAL WITH CHEST DISCOMFORT. PATIENT HAS BEEN HAVING SOME CHEST PAIN ON AND OFF FOR THE LAST 3 WEEKS IT GOT SIGNIFICANTLY WORSE SO HE CAME INTO THE EMERGENCY ROOM. HE WAS WORKING IN [employer] WHEN THE CHEST PAIN STARTED AND HE DROVE BACK HOME TO COME TO THE EMERGENCY ROOM HERE. HE HAS HAD HISTORY OF CORONARY ARTERY BYPASS GRAFTING AND HAD A CARDIAC CATHETERIZATION A FEW YEARS AGO. IT IS SUGGESTED THAT HE MAY HAVE A 30% LESION AND THE BYPASSED ARTERY. HE ALSO HAS A HISTORY OF CAROTID ARTERY ATHEROSCLEROTIC DISEASE. AT THIS TIME PATIENT WILL BE ADMITTED FOR FURTHER EVALUATION. IT APPEARS HE MAY HAVE UNSTABLE ANGINA. HE MAY NEED FURTHER EVALUATION WITH AN ANGIOGRAM. STRESS TEST HAS BEEN ORDERED FOR THE MORNING AND WILL AWAIT THE RESULTS OF THIS AT THIS TIME. Hospital Course: He was admitted and monitored on the telemetry Trended cardiac enzymes. Underwent an Echocardiogram and Stress test Cardiology was consulted patient has multiple risk factors including CAD status post CABG His stress test was positive for inducible ischemia and he underwent left heart catheterization. Cardiology recommended conservative management with medications and follow up as an outpatient with cardiology. the patient wanted go home and is being discharged home today in a stable condition with advice to follow up with PCP in 1 week and also with Cardiology in 1-2 weeks Vital Signs/Physical Exam: Temp Pulse Resp BP Pulse Ox 97.6 F 55 15 145/77 H 99 09/24/19 14:00 09/24/19 14:00 09/24/19 14:00 09/24/19 14:00 09/24/19 14:00 General: Alert, In no apparent distress HEENT: Atraumatic, Normocephalic Neck: Supple, 2+ carotid pulse no bruit Respiratory: Clear to auscultation bilaterally Cardiovascular: Normal pulses, Regular rate/rhythm Capillary refill: <2 Seconds Gastrointestinal: Soft and benign Musculoskeletal: No clubbing, No swelling Integumentary: No breakdown Neurological: Normal speech, Normal strength at 5/5 x4 extr Lymphatics: No axilla or inguinal lymphadenopathy Laboratory Data at Discharge: WBC 8.0 K/uL (4.3-10.9) 09/24/19 05:54 Hgb 14.9 g/dL (13.6-17.9) 09/24/19 05:54 Hct 43.9 % (39.6-49.0) 09/24/19 05:54 Plt Count 254 K/uL (152-406) 09/24/19 05:54 PT 11.4 SECONDS (9.5-12.5) 09/22/19 15:13 INR 0.96 09/22/19 15:13 Sodium 140 mmol/L (136-145) 09/24/19 05:54 Potassium 4.3 mmol/L (3.5-5.1) 09/24/19 05:54 BUN 14 mg/dL (7-18) 09/24/19 05:54 Creatinine 0.98 mg/dL (0.55-1.3) 09/24/19 05:54 Glucose 104 mg/dL (74-106) 09/24/19 05:54 Magnesium 2.2 mg/dL (1.8-2.4) 09/22/19 15:13 Total Bilirubin 0.6 mg/dL (0.2-1.0) 09/22/19 15:13 AST 30 U/L (15-37) 09/22/19 15:13 ALT 47 U/L (12-78) 09/22/19 15:13 Alkaline Phosphatase 86 U/L (45-117) 09/22/19 15:13 Troponin I < 0.02 ng/mL (0.0-0.045) 09/23/19 00:42 Triglycerides 205 mg/dL (<150) H 09/22/19 21:11 Cholesterol 207 mg/dL (<200) H 09/22/19 21:11 HDL Cholesterol 58 mg/dL (40-60) 09/22/19 21:11 Cholesterol/HDL Ratio 3.57 09/22/19 21:11 Home Medications: Atorvastatin Calcium [Lipitor*] 1 tab PO BEDTIME 09/22/19 carvediloL [Carvedilol] 1 tab PO BID 09/22/19 lisinopriL [Lisinopril] 1 tab PO BEDTIME 09/22/19 Atorvastatin Calcium [Lipitor] 80 mg PO BEDTIME 60 Days #60 tab 09/24/19 Isosorbide Mononitrate [Isosorbide Mononitrate ER] 30 mg PO DAILY 60 Days #60 tab.er.24h 09/24/19 New Medications: Atorvastatin Calcium [Lipitor] 80 mg PO BEDTIME 60 Days #60 tab Isosorbide Mononitrate [Isosorbide Mononitrate ER] 30 mg PO DAILY 60 Days #60 tab.er.24h Diet: AHA Activity: Ad bill Followup: Jose Maria Kessler MD [ACTIVE - CAN ADMIT] - 1-2 Weeks (call to make an appointment. ) Time spent managing pt's care (in minutes): 39
--- NOTE | 2019-09-25 00:20 | OP ---
Date of Procedure: 09/24/2019 Surgeon: Jose Maria Kessler MD Commercial Loan Administrator: Ronnell Garza. The patient will rest for 2 hours bedrest and he will go home and I will see him in the office in 2 w eeks. Procedure: Left heart catheterization, aortic root injection, vein graft injection, RUBIO injection. Indication: Chest pain and history of coronary artery disease and a positive stress test. History Of Present Illness: Mr. Stewart was brought to the systems testing laboratory technician as an inpatient, prepped and karlee ped in the routine sterile fashion. Given Versed and fentanyl for sedation. He was prepped and drap ed in the routine sterile fashion. A 6-Swedish sheath introduced in the right common femoral artery. Angio-Seal was used to close the case. Coronary angiography was done using a left Maame catheter 6-Swedish into the left main. This showed completely occluded LAD, completely occluded circumflex, an d left main. A JR4 was used and an RCA injection was done. He had a 70% to 80% heavily calcified ve ry ostial RCA stenosis. The RCA was not dominant. I could not find a graft that goes to the RCA. T here was a vein graft to the OM that was injected and that goes sequentially to the OM1 and OM2 and d oes give some collaterals to the distal RCA. He was left dominant. A RUBIO injection was done with t he JR4 and that was patent to the LAD with excellent distal flow. Aortic root was done and only show ed the graft coming out of the aorta to the OM1 and OM2. No other grafts were seen. The aortic root was otherwise normal. There were no aortic regurgitation. Complications: None. Blood Loss: 5 mL. Anesthesia: Total conscious sedation was 45 minutes. Final Diagnoses: Severe coronary artery disease, patent left internal mammary artery to the left ant erior descending, patent vein graft to the OM1 and OM2 with collaterals to the distal right coronary artery, 70% to 80% calcified right coronary artery stenosis in a nondominant vessel. Plan: Plan is for medical therapy. He is on Lipitor, I will increase it to 80. He is on Coreg 25 b .i.d. He is on lisinopril. I am going to add Imdur 30 mg daily. He can go home today and I will se e him in the office in 2 weeks. If he continues to have symptoms, I will probably send him to one of my associates in [place], so he can have an RCA ostial angioplasty and stent. This may be a complic ated procedure and I elected to be conservative at this point, treat him medically and see how he lim s. Again, the RCA is nondominant and there are collaterals to it from the OM1 and OM2. Ironically, the stress test showed lateral ischemia. LUIS/CHRISTOPHER Voice ID: [id number] Report ID: [id number]
[2019-09-27 05:13] VITALS: BP 128/77; TEMP 97.6
== END 2019-09-24 17:22 | disposition home or self-care (01) ==
LOC: ER 14:35 → ERHOLD 18:52 → 2ND 20:25
PROVIDERS: ADMIT Hospitalist; ATTEND Family Medicine
DX: I25.110 Atherosclerotic heart disease of native coronary artery with unstable angina pectoris (principal); I25.82 Chronic total occlusion of coronary artery; I65.23 Occlusion and stenosis of bilateral carotid arteries; I10 Essential (primary) hypertension; E78.5 Hyperlipidemia, unspecified; Z79.899 Other long term (current) drug therapy; Z95.1 Presence of aortocoronary bypass graft; Z95.5 Presence of coronary angioplasty implant and graft
CPT/HCPCS: 93005; 93017; 93306; 85025 ×3; 80048 ×3; 36415 ×2; 83735; 85610; 80061; 80076; 84484 ×3; 83880; 71275; 74175; 71045; 93459; 93880; 94760 ×4; 78452; 99285; Q9967; C1893; C1760; J2550; J1650; J2250 ×2; J3010; J2785; G0378 ×5; J7040; A9500; J0583